=== PATIENT | female | born 1965 | race Caucasian/White ===

== ENCOUNTER 2019-07-12 13:50 | Emergency (ER) | payer SELFPAY ==
[2019-07-12 14:18] VITALS: BP 169/97; PULSE 92; RESP 18; TEMP 36.6; O2SAT 91; BMI 33.5
--- NOTE | 2019-07-12 14:56 | PC.NURSE ---
Pt sitting in waiting room. No needs at this time.
--- NOTE | 2019-07-12 14:58 | XR_ITS ---
WS: [id number] Portable AP upright chest, 07/12/2019 Clinical Data: cough Comparison: PA and lateral chest, 08/11/2016 Findings: No nodules, masses or effusions are seen. The heart is normal. The pulmonary vascularity is not increased. No pneumonia or pneumothorax is present. XR/XR chest 1V portable [id number] Impression: Negative chest.
--- NOTE | 2019-07-12 15:34 | ED_ITS ---
Entered by Sylwia Oliver, acting as scribe for Trupti Hawkins DO Jul 12, 2019 13:50 HPI - SOB/Dyspnea General: Chief Complaint: Shortness of Breath/Dyspnea Stated Complaint: sob, congestion Time Seen by Provider: 07/12/19 15:32 Source: patient Mode of arrival: ambulatory Limitations: no limitations History of Present Illness: HPI Narrative: 53 yo Female presents to ED with complaint of shortness of breath. Pt states that she has had cough and chest congestion since Monday. Pt states that she is not on oxygen at home. MD elicited complaint: shortness of breath and cough Onset (ago): day(s) Timing: constant Exacerbating factors: coughing Relieving factors: oxygen Associated symptoms: Reports chest congestion and cough; Deny abdominal pain, chest pain, extremity pain, fever(s), hemoptysis, nausea, orthopnea, polydipsia, polyuria or vomiting Treatment prior to arrival: none Related Data: Home oxygen amount: none Review of Systems Const: Denies: fever, chills, change in appetite or malaise Eyes: Denies: change in vision, blurry vision, eye discharge or eye redness ENMT: Denies: throat pain, uvular edema, painful swallowing, mouth pain, dental pain, nasal congestion or facial/sinus pain Card: Denies: chest pain, irregular heart rhythm, swelling of feet/ankles, shortness of breath on exertion, shortness of breath when lying down or leg pain with exertion Resp: Reports: chest congestion; Denies: shortness of breath, productive cough, wheezing or coughing up blood GI: Denies: abdominal pain, nausea, vomiting, diarrhea, constipation or fecal incontinence : Denies: flank pain, difficulty urinating, painful urination, urinary frequency, urinary urgency or urinary hesitancy Musc: Denies: neck pain, back pain, extremity pain or extremity swelling Skin/Breast: Denies: rash, itching, redness, yellow skin or dry skin Neuro: Denies: headache, numbness in extremities, weakness in extremities, changes in sensation, lack of coordination or difficulty walking Psych: Denies: anxiety, depression, mood swings, panic attacks, sleeping less, suicidal ideation or homicidal ideation Endo: Denies: excessive urination, excessive thirst or tired all the time Ben/Lymph: Denies: easy bruising, petechiae or enlarged lymph nodes All/Imm: Denies: hives, throat swelling, facial swelling, acute wheezing or seasonal allergies PFSH ED PFSH: Statuses (acute, chronic, etc) shown below reflect problem list status as previously entered and may not be historically accurate Social History Smoking and tobacco status: current every day smoker Physical Exam 2 Const: COMMON NORMALS: no apparent distress, oriented x3, no limitations, healthy appearing, alert and well nourished GENERAL APPEARANCE: cooperative, comfortable, well kempt and well developed ORIENTATION/CONSCIOUSNESS: Yes awake, Yes oriented to person, Yes oriented to place and Yes oriented to time HENMT: COMMON NORMALS: normocephalic, head/scalp atraumatic, hearing grossly normal bilaterally, external ears normal, EAC's normal, TM's normal bilaterally, external nose normal, nasal mucous membranes and turbinates normal, moist oral mucous membranes, oropharynx normal, dentition normal and gingiva normal HEAD & SCALP: normal to inspection, normocephalic and atraumatic FACE & SINUS: normal facial exam NOSE: external nose normal and nasal mucous membranes and turbinates normal EXTERNAL EAR: Yes external ears normal EXTERNAL AUDITORY CANAL: EAC's normal TYMPANIC MEMBRANE: TM's normal bilaterally MOUTH: oral and palatal mucosa normal, lip normal and tongue normal THROAT: no uvular edema Eye: COMMON NORMALS: PERRL, EOMs intact bilaterally, conjunctivae normal, no scleral icterus and normal visual dunn by confrontation GENERAL EYE: normal appearance of both eyes and normal light reflex VISUAL ACUITY: Yes acuity normal ALIGNMENT: Yes alignment normal PERIORBITAL: periorbital findings normal EYELID: eyelids normal CONJUNCTIVA: Yes conjunctivae normal SCLERA: sclerae normal PUPIL: Yes PERRL and Yes accommodation reflex normal DIRECT OPHTHALMOSCOPY: Yes normal light reflex Neck/C-Spine: COMMON NORMALS: full ROM, no lymphadenopathy, supple, no meningeal signs and no JVD GENERAL: Yes normal visual inspection CAROTIDS: Yes normal carotid upstroke CERVICAL SPINE: Yes cervical ROM normal Lymph: LYMPHATIC: no lymphadenopathy noted Chest: COMMONS NORMALS: inspection of chest normal CHEST: Yes symmetrical chest wall rise Resp: COMMON NORMALS: normal respiratory effort, no retractions, no use of accessory muscles and clear to auscultation bilaterally EFFORT & INSPECTION: Yes able to speak in complete sentences and Yes symmetric chest movement AUSCULTATION: clear to auscultation bilaterally Cardio: COMMON NORMALS: no JVD, regular rate, regular rhythm, S1 normal heart sound, S2 normal heart sound, no murmurs and peripheral pulses 2+ throughout RATE: regular rate RHYTHM: regular rhythm HEART SOUNDS: S1 normal and S2 normal PERIPHERAL PULSES: pulses 2+ throughout GI: COMMON NORMALS: normal to inspection, nondistended, normoactive bowel sounds and non-tender : COMMON NORMALS: Yes no CVA tenderness BLADDER/KIDNEY EXAM: Yes no CVA tenderness Back/Pelvis: COMMON NORMALS: no CVA tenderness, thoracic and lumbar spine normal to inspection, no thoracic nor lumbar tenderness and thoraco-lumbar ROM normal Extremity: COMMON NORMALS: normal to inspection, full ROM, normal capillary refill, no calf tenderness and no pedal edema Neuro: COMMON NORMALS: oriented x3, CN's II-XII intact bilaterally, moves all extremities, no focal motor deficits, no sensory deficits noted and gait normal SENSORIUM/ORIENTATION: Yes alert, Yes oriented to person, Yes oriented to place and Yes oriented to time MENINGEAL SIGNS: Yes no meningeal signs SPEECH: speech normal GAIT: Yes normal gait MOTOR EXAM: strength 5/5 throughout, no pronator drift and no tremor noted Psych: COMMON NORMALS: mental status grossly normal, thought process normal, cooperative, affect normal, speech normal and activity/motor behavior normal APPEARANCE: Yes well kempt SPEECH: Yes normal speech THOUGHT PROCESS: normal thought process THOUGHT CONTENT: Yes normal thought content INSIGHT: insight good Skin: COMMON NORMALS: no rashes or lesions noted, no wounds, skin turgor normal and no jaundice GENERAL SKIN EXAM: no rashes or lesions noted and turgor normal Course ED course: pt improved after treamtne. Agrees with plan to treat as bronchitis, discussed smoking cessation. No claudication or indication for further testing at this time, pt will return for further evaluation as needed if symptoms worsen or change. Vital Signs: Vital signs: Vital Signs Temperature 97.8 F 07/12/19 14:18 Pulse Rate 92 07/12/19 14:18 Respiratory Rate 18 07/12/19 14:18 Blood Pressure 169/97 07/12/19 14:18 Pulse Oximetry 91 07/12/19 14:18 MDM - SOB/Dyspnea Differential Diagnosis: Shortness of Breath Differential Diagnosis: Likely acute exacerbation of chronic obstructive airways disease, community acquired pneumonia and asthma with exacerbation Imaging Data^: CXR: Radiologist's impression: [address] [address] XRay Report Signed Patient: Shireen Silverman #: [id number] : 1965Acct#:[id number] Age/Sex: 53 / FADM Date: 07/12/19 Loc: ERRoom/Bed: Attending Dr: Ordering Provider/Ordering MD: Trupti Hawkins DO Date of Service: 07/12/19 Procedure(s): XR chest 1V portable [id number] Accession Number(s): [id number] Report Number: [id number] WS: [id number] Portable AP upright chest, 07/12/2019 Clinical Data: cough Comparison: PA and lateral chest, 08/11/2016 Findings: No nodules, masses or effusions are seen. The heart is normal. The pulmonary vascularity is not increased. No pneumonia or pneumothorax is present. XR/XR chest 1V portable [id number] Impression: Negative chest. Dictated By:Selin Nixon MD Signed By:Selin Nixon MDSigned Date/Time:07/12/191530 DD/ 1530 Discharge Plan Discharge Patient Disposition: Home, Self-Care Clinical Impression: Acute exacerbation of chronic obstructive airways disease Condition: Stable Prescriptions: New Tessalon Perles 100 mg capsule 100 mg PO TID 7 Days Qty: 21 RF: 0 doxycycline monohydrate 100 mg capsule 100 mg PO BID 7 Days Qty: 14 RF: 0 prednisone 50 mg tablet 50 mg PO DAILY 7 Days RF: 0 Ventolin HFA 90 mcg/actuation HFA aerosol inhaler 2 inh INHALATION Q6H PRN (Reason: shortness of breath or wheezing) Qty: 8 RF: 0 Discharge Orders: Discharge Order (Routine); Ordered 07/12/19 Ordered By: Trupti Hawkins Referrals: Pati Villavicencio FNP [Primary Care Provider] - Discharge Diet: Usual diet Discharge Activity: Resume usual activity Patient Instructions: Acute Bronchitis (ED), Quitting Smoking Coding Level of Care Code ED Hand Quilter for Chg Fwd Exam Problem Focused The documentation recorded by the krystinibMelody young Carmen, accurately reflects the service I personally performed and the decisions made by me, Trupti Hawkins, Jul 12, 2019 13:50
[2019-07-12] MEDS: albuterol 8 gm MDI 1 PUFF INHALATION (15:56)
[2019-07-12 15:58] VITALS: PULSE 93; RESP 18; O2SAT 92
[2019-07-12 16:00] VITALS: PULSE 96
[2019-07-12 16:15] VITALS: BP 160/82; PULSE 93; RESP 22; O2SAT 92
== END 2019-07-12 16:12 | disposition home or self-care (01) ==
PROVIDERS: Emergency Provider Emergency Medicine; Family Provider Nurse Practitioner Family; PCP Nurse Practitioner Family
DX: J44.1 Chronic obstructive pulmonary disease with (acute) exacerbation (principal); F17.210 Nicotine dependence, cigarettes, uncomplicated
CPT/HCPCS: 71045; 94640; 96372; 99281; 99284; J2930; J3535

== ENCOUNTER 2019-12-12 16:51 | Outpatient (CLI) | payer OTHER, SELFPAY ==
[2019-12-12 17:40] LABS: Thyroid Stimulating Hormone 1.69 uIU/mL (0.27-4.20); Uric Acid 5.3 mg/dL (2.4-5.7)
[2019-12-12 19:24] LABS: Estmated Average Glucose 123; Hemoglobin A1C 5.9 % (4.0-6.0)
[2019-12-16 21:00] LABS: Smooth Muscle Ab Screen NEGATIVE (NEGATIVE)
== END 2019-12-12 16:52 | disposition home or self-care (01) ==
LOC: LAB 16:54
PROVIDERS: PCP Nurse Practitioner Family; Visit Provider Nurse Practitioner Family
DX: R73.9 Hyperglycemia, unspecified (principal); Z86.39 Personal history of other endocrine, nutritional and metabolic disease; M25.50 Pain in unspecified joint
CPT/HCPCS: 83036; 83516; 84443; 84550

== ENCOUNTER 2020-05-11 13:27 | Emergency (ER) | payer OTHER, SELFPAY ==
[2020-05-11 13:34] VITALS: BP 150/82; PULSE 81; RESP 18; TEMP 36.5; O2SAT 97; BMI 36.2
--- NOTE | 2020-05-11 14:15 | XR_ITS ---
WS: [id number] PORTABLE CHEST HISTORY: CP COMPARISON: 07/12/2019 Hyperexpanded lungs with mild edema. No pneumonia. No pleural effusion or pneumothorax. Cardiac size: Normal. Mediastinum/Aorta: Normal mediastinum. No osseous abnormality seen. XR/XR chest 1V portable [id number] IMPRESSION: Mild interstitial edema. No pneumonia.
--- NOTE | 2020-05-11 14:19 | W.ED.CHESTPA ---
HPI - Chest Pain General: Chief Complaint: Chest Pain Stated Complaint: CP Time Seen by Provider: 05/11/20 13:44 Source: patient Mode of arrival: ambulatory Limitations: no limitations History of Present Illness: MD complaint: chest pain Onset (ago): hour(s) (11) Timing of current episode: constant Prior episodes: Yes Onset: during rest Pain location: substernal Pain radiation: right arm and back Severity: severe Pain scale (0-10): 8 Quality: sharp Relieving factors: nothing Exacerbating factors: nothing Associated symptoms: Reports dyspnea, leg edema and nausea; Deny abdominal pain, diaphoresis, fever(s), palpitations, sense of impending doom, syncope or vomiting Treatment prior to arrival: aspirin Review of Systems General: Reports: 10 or more systems reviewed and unremarkable except in HPI and below Const: Denies: fever(s) or diaphoresis Eyes: Denies: change in vision or blurry vision ENMT: Denies: throat pain, enlarged tonsils, odynophagia, hoarseness, mouth pain or swelling of lips/tongue Card: Denies: palpitations or syncope Resp: Reports: dyspnea GI: Reports: nausea; Denies: abdominal pain or vomiting : Denies: flank pain, difficulty voiding, dysuria, urinary frequency, urinary urgency or urinary hesitancy Musc: Reports: extremity swelling; Denies: neck pain or back pain Skin/Breast: Denies: rash, pruritus or erythema Neuro: Denies: headache(s), numbness in extremities or weakness in extremities Endo: Denies: polyuria, polydipsia or tired all the time [facility] ED PFSH: Medical History (Reviewed 05/11/20 @ 14:21 by Bernadette Joyce [place], [facility] [place] Fluid retention in legs Heart murmur Menopause Surgical History (Reviewed 05/11/20 @ 14:21 by Bernadette Joyce MD, [facility] [place] H/O: hysterectomy Social History (Reviewed 05/11/20 @ 14:21 by Bernadette Joyce MD, [facility] [place] Smoking and tobacco status: current every day smoker Physical Exam Const: COMMON NORMALS: no acute distress, average body habitus, patient oriented x3, no limitations, healthy appearing, alert and well nourished HENMT: COMMON NORMALS: normocephalic, atraumatic and moist oral mucous membranes HEAD & SCALP: normocephalic and atraumatic Neck/C-Spine: COMMON NORMALS: no meningeal signs and no JVD Resp: COMMON NORMALS: normal respiratory effort, No retractions, No use of accessory muscles, clear to auscultation bilaterally and percussion normal AUSCULTATION: clear to auscultation bilaterally PERCUSSION: percussion normal Cardio: COMMON NORMALS: no JVD, regular rate, regular rhythm, S1 normal heart sound present, S2 normal heart sound present, No gallops present (Cardio), No clicks present (Cardio), No rub (Cardio) and Peripheral pulses 2+ throughout RATE: regular rate RHYTHM: regular rhythm HEART SOUNDS: S1 normal heart sound present, S2 normal heart sound present and Murmur heart sound present PERIPHERAL PULSES: Peripheral pulses 2+ throughout GI: COMMON NORMALS: Normal to inspection, nondistended, normoactive bowel sounds present, Soft to palpation, non-tender, No hepatosplenomegaly present, no masses and no bruits PALPATION: Yes Soft to palpation and Yes No hepatosplenomegaly present Extremity: COMMON NORMALS: normal to inspection, full ROM, capillary refill normal and no calf tenderness GENERAL: Yes edema (2+) Neuro: COMMON NORMALS: patient oriented x3 SENSORIUM/ORIENTATION: Yes alert MENINGEAL SIGNS: Yes no meningeal signs Skin: COMMON NORMALS: no rashes or lesions noted, no wounds, turgor normal, no jaundice, no petechiae and no mottling GENERAL SKIN EXAM: no rashes or lesions noted and turgor normal Course Reevaluation(s): Reevaluation #1: Discussed her lab and imaging findings with her. Negative high-sensitivity troponin x2. D-dimer elevated but a CTA was negative for PE. Nothing acute on her evaluation today and I will discharge her home with no new orders. She voiced understanding and is in agreement with the plan. Time: 18:15 Vital Signs: Vital signs: Vital Signs Temperature 97.7 F 05/11/20 13:34 Pulse Rate 81 05/11/20 18:41 Respiratory Rate 18 05/11/20 18:41 Blood Pressure 141/78 05/11/20 18:41 Pulse Oximetry 95 05/11/20 18:41 MDM - Chest Pain MDM Narrative: Medical decision making narrative: Patient with chest pain that is not likely to be cardiac. She had a negative high-sensitivity troponin x2. D-dimer was elevated but a chest CTA was negative for PE or other acute findings. She is discharged home with no new orders. Differential Diagnosis: Cardiac arrest differential diagnosis: Likely acute massive pulmonary embolism, acute respiratory failure and acute myocardial infarction Medical Records: Attestation: I reviewed the patient's medical records. Lab Data: Attestation: I reviewed the patient's lab results. Labs: Lab Results 05/11/20 05/11/20 05/11/20 Range/Units 14:30 14:30 14:30 WBC Cancelled Corrected WBC Cancelled RBC Cancelled Hgb Cancelled Hct Cancelled MCV Cancelled MCH Cancelled MCHC Cancelled RDW Cancelled Plt Count Cancelled MPV Cancelled Gran % Cancelled Neut % (Auto) Cancelled Lymph % (Auto) Cancelled Beadle % (Auto) Cancelled Eos % (Auto) Cancelled Baso % (Auto) Cancelled Neut # (Auto) Cancelled Lymph # (Auto) Cancelled Beadle # (Auto) Cancelled Eos # (Auto) Cancelled Baso # (Auto) Cancelled Absolute Gran (aut o) Cancelled Nucleated RBC % (a uto) Cancelled Nucleated RBCs # Cancelled D-Dimer (0-0.59) ug/mIFE U Sodium Cancelled Potassium Cancelled Chloride Cancelled Carbon Dioxide Cancelled Anion Gap Cancelled BUN Cancelled Creatinine Cancelled GFR Calculation Cancelled Glucose Cancelled Calculated Osmolal ity Cancelled Calcium Cancelled Total Bilirubin Cancelled AST Cancelled ALT Cancelled Alkaline Phosphata se Cancelled Troponin T Baselin e Cancelled Troponin T 120 Min [place] (0-10) ng/L Delta Troponin T (0-10) ABS# NT-Pro-B Natriuret Pep Cancelled Total Protein Cancelled Albumin Cancelled Globulin Cancelled Lipase Cancelled 05/11/20 05/11/20 05/11/20 Range/Units 15:01 15:01 15:01 WBC 6.8 Corrected WBC RBC 4.33 Hgb 13.5 Hct 40.1 MCV 92.6 MCH 31.2 MCHC 33.7 RDW 14.5 Plt Count 159 MPV 9.5 Gran % Neut % (Auto) 41.6 Lymph % (Auto) 41.1 Beadle % (Auto) 14.0 Eos % (Auto) 2.5 Baso % (Auto) 0.7 Neut # (Auto) 2.83 Lymph # (Auto) 2.8 Beadle # (Auto) 1.0 H Eos # (Auto) 0.2 Baso # (Auto) 0.1 Absolute Gran (aut o) Nucleated RBC % (a uto) 0 Nucleated RBCs # 0.0 D-Dimer 1.47 H (0-0.59) ug/mIFE U Sodium 141 Potassium 3.8 Chloride 108 H Carbon Dioxide 24 Anion Gap 12.8 BUN 10 Creatinine 0.5 GFR Calculation 129.6 Glucose 91 Calculated Osmolal ity 291 Calcium 8.7 Total Bilirubin 1.1 AST 61 H ALT 31 Alkaline Phosphata se 173 H Troponin T Baselin e Troponin T 120 Min [place] (0-10) ng/L Delta Troponin T (0-10) ABS# NT-Pro-B Natriuret Pep 95 Total Protein 6.8 Albumin 3.6 Globulin 3.2 Lipase 30 05/11/20 05/11/20 Range/Units 15:01 17:04 WBC Corrected WBC RBC Hgb Hct MCV MCH MCHC RDW Plt Count MPV Gran % Neut % (Auto) Lymph % (Auto) Beadle % (Auto) Eos % (Auto) Baso % (Auto) Neut # (Auto) Lymph # (Auto) Beadle # (Auto) Eos # (Auto) Baso # (Auto) Absolute Gran (aut o) Nucleated RBC % (a uto) Nucleated RBCs # D-Dimer (0-0.59) ug/mIFE U Sodium Potassium Chloride Carbon Dioxide Anion Gap BUN Creatinine GFR Calculation Glucose Calculated Osmolal ity Calcium Total Bilirubin AST ALT Alkaline Phosphata se Troponin T Baselin e 6 Troponin T 120 Min [place] 6.00 (0-10) ng/L Delta Troponin T 0 (0-10) ABS# NT-Pro-B Natriuret Pep Total Protein Albumin Globulin Lipase Imaging Data^: CXR: Attestation: I personally reviewed and interpreted this imaging study as follows: Radiologist's impression: [address] [address] XRay Report Signed Patient: Shireen Silverman AUnyunier #: [id number] : 1965Acct#:[id number] Age/Sex: 54 / FADM Date: 05/11/20 Loc: ERRoom/Bed: Attending Dr: Ordering Provider/Ordering MD: Bernadette Joyce MD, JONI Date of Service: 05/11/20 Procedure(s): XR chest 1V portable [id number] Accession Number(s): [id number] Report Number: [id number] WS: [id number] PORTABLE CHEST HISTORY: CP COMPARISON: 07/12/2019 Hyperexpanded lungs with mild edema. No pneumonia. No pleural effusion or pneumothorax. Cardiac size: Normal. Mediastinum/Aorta: Normal mediastinum. No osseous abnormality seen. XR/XR chest 1V portable [id number] IMPRESSION: Mild interstitial edema. No pneumonia. Dictated By:Kerry Payne DO Signed By:Kerry Payne DOSigned Date/Time:05/11/201438 DD/ 38 CTA Chest: Radiologist's impression: [place] [address] CT Scan Report Signed Patient: Shireen Silverman #: [id number] : 1965Acct#:[id number] Age/Sex: 54 / FADM Date: 05/11/20 Loc: ERRoom/Bed: Attending Dr: Ordering Provider/Ordering MD: Bernadette Joyce MD, [facility] [place] of Service: 05/11/20 Procedure(s): CT angio chest PE protcl [id number] Accession Number(s): [id number] Report Number: [id number] PROCEDURE INFORMATION: Exam: CT Angiography Chest With Contrast Exam date and time: 05/11/2020 5:21 PM Age: 54 years old Clinical indication: Shortness of breath; Chest pain; Additional info: Chest pain, SOB, TECHNIQUE: Imaging protocol: Computed tomographic angiography of the chest with intravenous contrast. 3D rendering (Not supervised by radiologist): MIP and/or 3D reconstructed images were created by the technologist. Radiation optimization: All CT scans at this facility use at least one of these dose optimization techniques: automated exposure control; mA and/or kV adjustment per patient size (includes targeted exams where dose is matched to clinical indication); or iterative reconstruction. Contrast material: OMNI 350; Contrast volume: 73 ml; Contrast route: INTRAVENOUS (IV); COMPARISON: CR XR chest 1V portable [id number] 05/11/2020 2:19 PM RADIATION DOSE METRICS: Total DLP (mGy-cm): 613.91 FINDINGS: Pulmonary arteries: There is no evidence of filling defects within the pulmonary arterial circulation to suggest pulmonary embolism. Aorta: Unremarkable. No aortic aneurysm. No aortic dissection. Lungs: There is some minimal scarring in the periphery of the right middle lobe. Pleural space: There are no pleural effusions present. Heart: Unremarkable. No cardiomegaly. No pericardial effusion. 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 Lymph nodes: There is calcified granuloma in the right lower lobe and there are calcified right hilar lymph nodes in keeping with old granulomatous disease. There is mild subcarinal adenopathy. Spleen: The spleen demonstrates punctate calcifications, consistent with remote granulomatous organism exposure. Bones/joints: Unremarkable. No acute fracture. Soft tissues: Unremarkable. CT/CT angio chest PE protcl [id number] IMPRESSION: 1. No evidence of pulmonary embolism. 2. Old granulomatous disease. Radiation Dose CTDIVOL = (mGy): DLP = 613.91 (mGy-cm) Dictated By:Luke Fisher Signed By:Manasa Fisherigned Date/Time:05/11/201756 DD/ 55 EKG Data^: EKG 1: Attestation: I personally reviewed and interpreted this EKG as follows: EKG interpretation date: 05/11/20 EKG interpretation time: 13:33 Prior EKG tracings: not available for review Interpretation: Normal sinus rhythm. Heart rate [address] changes. Q waves in 2 3 aVF and V4 V5 and V6. EKG 2: Attestation: I personally reviewed and interpreted this EKG as follows: EKG interpretation date: 05/11/20 EKG interpretation time: 16:37 Prior EKG tracings: available for review Interpretation: Normal sinus rhythm. Heart rate 83 bpm. Q waves in 2 3 and aVF and V4 V5 and V6. Unchanged from earlier today Discharge Plan Discharge Patient Disposition: Home Clinical Impression: Chest pain, non-cardiac Condition: Stable Prescriptions: Continued aspirin 81 mg Tablet,Delayed Release (Dr/Ec) 81 mg PO ONCE RF: 0 Vitamin B-12 50 mcg Tablet 50 mcg PO DAILY@04 RF: 0 Acidophilus Capsule 1 cap PO DAILY@04 RF: 0 Claritin 10 mg Tablet 10 mg PO DAILY@04 RF: 0 Premarin 0.625 mg tablet 0.625 mg PO DAILY@04 RF: 0 Lasix 20 mg tablet 20 mg PO DAILY@04 RF: 0 Discharge Orders: Discharge ED (Routine); Ordered 05/11/20 Ordered By: Bernadette Joyce Referrals: Pati Villavicencio FNP [Primary Care Provider] - 1-3 days Discharge Diet: Usual diet Discharge Activity: Resume usual activity Patient Instructions: Noncardiac Chest Pain (ED) Activity Restrictions/Additional Instructions: Return for any new or worsening symptoms. Follow-up with your primary care provider within 3 days. Continue home medications. Coding Level of Care Code ED Commissioned Security Officer for Loi Fwd Exam Comprehensive
[2020-05-11 15:16] LABS: Basophils # 0.1 10^3/uL (0.0-0.1); Basophils % 0.7 %; Eosinophils # 0.2 10^3/uL (0.0-0.8); Eosinophils % 2.5 %; Hematocrit 40.1 % (37.0-47.0); Hemoglobin 13.5 g/dL (11.5-15.3); Lymphocytes # 2.8 10^3/uL (0.8-4.8); Lymphocytes % 41.1 %; Mean Corpuscular HGB Conc 33.7 g/dL (30.0-36.0); Mean Corpuscular Hemoglobin 31.2 pg (28.0-34.0); Mean Corpuscular Volume 92.6 fL (81-99); Mean Platelet Volume 9.5 fL (7.4-10.4); Neutrophils # 2.83 10^3/uL (1.8-7.7); Neutrophils % 41.6 %; Nucleated Red Blood Cells % 0 %; Platelet Count 159 10^3/cmm (130-400); Red Blood Count 4.33 10^6/uL (4.1-5.3); Red Cell Distribution Width 14.5 % (12.1-15.1); White Blood Count 6.8 10^3/uL (4.0-10.0)
[2020-05-11 15:32] LABS: D Dimer 1.47 ug/mIFEU (0-0.59)
[2020-05-11] MEDS: aspirin 81 mg Chew Tablet 162 MG PO (15:35)
[2020-05-11] MEDS: nitroglycerin 1 gm/inch oint Pkt 1 INCH TOPICAL (15:35)
[2020-05-11 15:38] VITALS: BP 158/78; PULSE 76; RESP 18; O2SAT 96
[2020-05-11 15:52] LABS: Troponin(5th) Baseline 6 ng/L (0-10)
[2020-05-11 15:58] LABS: Alanine Aminotransferase 31 U/L (0-33); Albumin Level 3.6 g/dL (3.5-5.2); Alkaline Phosphatase 173 IU/L (35-105); Anion Gap 12.8 (5-19); Aspartate Amino Transferase 61 U/L (0-32); Blood Urea Nitrogen 10 mg/dL (6-20); Calcium 8.7 mg/dL (8.5-10.5); Carbon Dioxide 24 mmol/L (22-29); Chloride 108 mmol/L (98-107); Globulin 3.2 g/dL (1.3-4.6); Glomerular Filtration Rate 129.6 mL/min (90-130); Glucose 91 mg/dL (65-115); Lipase 30 U/L (13-60); NT Pro B Type Natriuretic Pept 95 pg/mL (0-125); Osmolality Calculated 291 mOsm/kg (285-295); Potassium 3.8 mmol/L (3.5-5.1); Sodium 141 mmol/L (136-145); Total Bilirubin 1.1 mg/dL (0.15-1.2); Total Protein 6.8 g/dL (6.6-8.7)
--- NOTE | 2020-05-11 16:17 | ECG_ITS ---
[facility] Test Date: 2020-05-11 Pat Name: Shireen Silverman Department: Room: Gender: Female Sales Process Manager: : 1965 Requested By: Bernadette Joyce I Order Number: [id number] Reading MD: BIJAN VERONICA Measurements Intervals [place] Rate: 83 P: 57 IN: 163 QRS: 70 QRSD: 88 T: 29 QT: 386 QTc: 455 Interpretive Statements SINUS RHYTHM NONSPECIFIC T-WAVE ABNORMALITY Compared to ECG 08/11/2016 17:56:05 No significant changes Electronically Signed On 05-11-2020 18:40:16 LABEL REMOVER by BIJAN VERONICA [id number]
--- NOTE | 2020-05-11 16:22 | CTR_ITS ---
PROCEDURE INFORMATION: Exam: CT Angiography Chest With Contrast Exam date and time: 05/11/2020 5:21 PM Age: 54 years old Clinical indication: Shortness of breath; Chest pain; Additional info: Chest pain, SOB, TECHNIQUE: Imaging protocol: Computed tomographic angiography of the chest with intravenous contrast. 3D rendering (Not supervised by radiologist): MIP and/or 3D reconstructed images were created by the technologist. Radiation optimization: All CT scans at this facility use at least one of these dose optimization techniques: automated exposure control; mA and/or kV adjustment per patient size (includes targeted exams where dose is matched to clinical indication); or iterative reconstruction. Contrast material: OMNI 350; Contrast volume: 73 ml; Contrast route: INTRAVENOUS (IV); COMPARISON: CR XR chest 1V portable [id number] 05/11/2020 2:19 PM RADIATION DOSE METRICS: Total DLP (mGy-cm): 613.91 FINDINGS: Pulmonary arteries: There is no evidence of filling defects within the pulmonary arterial circulation to suggest pulmonary embolism. Aorta: Unremarkable. No aortic aneurysm. No aortic dissection. Lungs: There is some minimal scarring in the periphery of the right middle lobe. Pleural space: There are no pleural effusions present. Heart: Unremarkable. No cardiomegaly. No pericardial effusion. 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 Lymph nodes: There is calcified granuloma in the right lower lobe and there are calcified right hilar lymph nodes in keeping with old granulomatous disease. There is mild subcarinal adenopathy. Spleen: The spleen demonstrates punctate calcifications, consistent with remote granulomatous organism exposure. Bones/joints: Unremarkable. No acute fracture. Soft tissues: Unremarkable. CT/CT angio chest PE protcl [id number] IMPRESSION: 1. No evidence of pulmonary embolism. 2. Old granulomatous disease. Radiation Dose CTDIVOL = (mGy): DLP = 613.91 (mGy-cm)
[2020-05-11 17:33] LABS: Troponin 5 2HR Delta 0 ABS# (0-10)
[2020-05-11] MEDS: iohexol 350 mg/mL 100 mL Btl IV (17:34)
[2020-05-11 17:47] VITALS: BP 134/58; PULSE 90; RESP 18; O2SAT 95
[2020-05-11 18:41] VITALS: BP 141/78; PULSE 81; RESP 18; O2SAT 95
== END 2020-05-11 18:42 | disposition home or self-care (01) ==
PROVIDERS: Emergency Provider Family Medicine; PCP Nurse Practitioner Family
DX: R07.89 Other chest pain (principal); Z79.82 Long term (current) use of aspirin; F17.210 Nicotine dependence, cigarettes, uncomplicated
CPT/HCPCS: 12345; 71045; 71275; 80053; 83690; 83880; 84484; 85025; 85378; 93005; 99283; 99284; Q9967

== ENCOUNTER 2020-05-13 14:53 | Outpatient (CLI) | payer OTHER, SELFPAY ==
--- NOTE | 2020-05-13 15:00 | USCV_ITS ---
Shireen Silverman Age: 54 Gender: F : 1965 Exam Date: 05/13/2020 15:24 Ordering Phys: Pati Villavicencio Technologist: Jessica Gan Exam Location: [facility] [place] Indication: MURMUR BP: 120 / 70 HR: 87 Rhythm: Sinus Technical Quality: Adequate MEASUREMENTS (Male / Female) Normal Values 2D ECHO LV Diastolic Diameter PLAX 3.8 cm 4.2 - 5.9 / 3.9 - 5.3 cm LV Systolic Diameter PLAX 2.6 cm LV Chamber Size 3.7 cm IVS Diastolic Thickness 0.9 cm 0.6 - 1.0 / 0.6 - 0.9 cm IVS Systolic Thickness 1.4 cm LVPW Diastolic Thickness 1.5 cm 0.6 - 1.0 / 0.6 - 0.9 cm LVPW Systolic Thickness 1.4 cm RV Chamber Size 2.9 cm LVOT Diameter 2.0 cm LV Ejection Fraction 2D Teich 58.1 % LV Ejection Fraction MOD 2C 64.0 % LV Ejection Fraction 2C AL 64.5 % LA Diameter 3.1 cm LA Width 2.9 cm LA Height 4.3 cm RA Width 2.6 cm RA Height 4.3 cm Aorta at Sinotubular Diameter 2.8 cm M-MODE LV Diastolic Diameter MM 4.7 cm 4.2 - 5.9 / 3.9 - 5.3 cm LV Systolic Diameter MM 2.3 cm LV Ejection Fraction MM Teich 83.0 % IVS Diastolic Thickness MM 1.1 cm 0.6 - 1.0 / 0.6 - 0.9 cm IVS Systolic Thickness MM 1.4 cm LVPW Diastolic Thickness MM 1.0 cm 0.6 - 1.0 / 0.6 - 0.9 cm LVPW Systolic Thickness MM 1.6 cm RV Diastolic Diameter MM 1.0 cm Aortic Annulus Diameter 3.0 cm LA Ao Ratio MM 1.2 MV E Point Septal Separation 0.4 cm DOPPLER AV Peak Velocity 197.0 cm/s LVOT Peak Velocity 105.0 cm/s AV Area Cont Eq vti 1.8 cm squared AV Area Cont Eq pk 1.7 cm squared MV Area PHT 4.4 cm squared Mitral E to A Ratio 1.0 MV E' Velocity 61.5 cm/s Mitral E to MV E' Ratio 10.4 Mitral E to LV E' Lateral Ratio 14.4 Mitral E to LV E' Septal Ratio 8.2 TR Peak Velocity 262.0 cm/s TR Peak Gradient 27.5 mmHg TR Mean Velocity 198.3 cm/s TR Mean Gradient 17.6 mmHg TR Velocity Time Integral 65.6 cm TV Peak E Velocity 88.0 cm/s Right Atrial Pressure 3.0 mmHg Pulmonary Artery Systolic Pressu 30.5 mmHg PV Peak Velocity 95.0 cm/s RV Acceleration Time 0.1 s RV Ejection Time 0.4 s RV AcT/ET 0.3 FINDINGS Left Ventricle Normal left ventricular size, systolic function and wall thickness, with no regional wall motion abnormalities. Left ventricular ejection fraction is estimated at 70 %. Normal diastolic function. Right Ventricle Normal right ventricular size and systolic function. Right ventricular systolic pressure 30.5 mmHg. Right Atrium Normal right atrial size. Left Atrium Normal left atrial size. Mitral Valve Structurally normal mitral valve. No mitral valve stenosis. No significant mitral valve regurgitation. Aortic Valve Aortic valve not well visualized. No aortic valve stenosis. No aortic valve regurgitation. Tricuspid Valve Structurally normal tricuspid valve. No tricuspid valve stenosis. Mild tricuspid valve regurgitation. Pulmonic Valve Pulmonic valve not well visualized. Pericardium No pericardial effusion. Aorta Normal-sized aortic root. Normal-sized inferior vena cava. CONCLUSIONS 1. Normal left ventricular size, systolic function and wall thickness, with no regional wall motion abnormalities. Left ventricular ejection fraction is estimated at 70 %. Normal diastolic function. 2. Normal right ventricular size and systolic function. 3. Normal pulmonary artery pressure. 4. Mild tricuspid valve regurgitation. 5. No prior similar studies to compare. Amna Charles MD (Electronically Signed) Final Date: 15 May 2020 13:50 S
== END 2020-05-13 14:54 | disposition home or self-care (01) ==
LOC: US 14:54
PROVIDERS: PCP Nurse Practitioner Family; Visit Provider Nurse Practitioner Family
DX: R01.1 Cardiac murmur, unspecified (principal); I07.1 Rheumatic tricuspid insufficiency
CPT/HCPCS: 93306

== ENCOUNTER 2020-06-10 12:17 | Outpatient (CLI) | payer OTHER, SELFPAY ==
[2020-06-10 12:53] LABS: Basophils # 0.1 10^3/uL (0.0-0.1); Basophils % 0.7 %; Eosinophils # 0.2 10^3/uL (0.0-0.8); Eosinophils % 2.8 %; Hematocrit 41.6 % (37.0-47.0); Hemoglobin 13.9 g/dL (11.5-15.3); Lymphocytes # 2.3 10^3/uL (0.8-4.8); Lymphocytes % 34.8 %; Mean Corpuscular HGB Conc 33.4 g/dL (30.0-36.0); Mean Corpuscular Hemoglobin 31.2 pg (28.0-34.0); Mean Corpuscular Volume 93.3 fL (81-99); Mean Platelet Volume 9.4 fL (7.4-10.4); Monocytes # 0.8 10^3/uL (0.2-0.9); Monocytes % 12.5 %; Neutrophils # 3.29 10^3/uL (1.8-7.7); Neutrophils % 49.1 %; Nucleated Red Blood Cells % 0 %; Platelet Count 147 10^3/cmm (130-400); Red Blood Count 4.46 10^6/uL (4.1-5.3); White Blood Count 6.7 10^3/uL (4.0-10.0)
[2020-06-11 17:38] LABS: Cat Dander (E1) Ige 0.67 kU/L; Cat Dander Class 1; Common Ragweed (Short) (W1) Ig <0.10 kU/L; Dog Dander (E5) Ige 0.18 kU/L; Dog Dander Class 0/1; Elm (T8) Ige <0.10 kU/L; Elm Class 0; English Plantain (W9) Ige <0.10 kU/L; English Plantain Class 0; Immunoglobulin E 88 kU/L (<OR=114); Immunoglobulin E 89 kU/L (<OR=114); Lamb'S Quarters (Goose Foot) <0.10 kU/L; Lamb'S Quarters Class 0; Maple (Box Elder) (T1) Ige <0.10 kU/L; Maple Class 0; Oak (T7) Ige <0.10 kU/L; Oak Class 0; Ragweeed Class 0; Rough Marsh Elder (W16) Ige <0.10 kU/L; Rough Marsh Elder Class 0
[2020-06-12 18:33] LABS: Aspergillus Fumigatus, Igg Ab, 71.9 mg/L (<=102)
[2020-06-15 17:42] LABS: Alternaria Alternata (M6) Ige <0.10 kU/L; Alternaria Class 0; Bermuda Class 0; Bermuda Grass (G2) Ige <0.10 kU/L; D. Farinae Class 0/1; Dermatophagoides Class 0/1; Dermatophagoides Farinae (D2) 0.21 kU/L; Dermatophagoides Pteronyssinus 0.25 kU/L; House Dust (Greer) (H1) Ige 0.29 kU/L; House Dust (Hollister- Stier) 0.34 kU/L; House Dust Class 0/1; Johnson Grass (G10) Ige 0.11 kU/L; Johnson Grass Cl 0/1; June Grass Class 0/1; June Grass(Kentucky Blue) (G8) 0.14 kU/L; Meadow Fescue (G4) Ige 0.18 kU/L; Meadow Fescue Class 0/1; Mucor Racemosus Class 0; Orchard Grass (Cocksfoot) (G3) 0.17 kU/L; Penicillium Class 0; Penicillium Notatum (M1) Ige <0.10 kU/L; Perennial Rye Grass (G5) Ige 0.12 kU/L; Perennial Rye Grass Class 0/1; Sweet Vernal Class 0/1; Sweet Vernal Grass (G1) Ige 0.24 kU/L; Timothy Grass (G6) Ige 0.16 kU/L; Timothy Grass Class 0/1
== END 2020-06-10 12:18 | disposition home or self-care (01) ==
LOC: LAB 12:19
PROVIDERS: PCP Nurse Practitioner Family; Visit Provider Internal Medicine Pulmonary Disease
DX: R60.0 Localized edema (principal)
CPT/HCPCS: 36415; 82785; 85025; 86003

== ENCOUNTER → 2020-06-13 14:43 | Outpatient (BNVA) | payer OTHER, SELFPAY | PROVIDERS: PCP Nurse Practitioner Family; Visit Provider Internal Medicine Pulmonary Disease | DX: R06.02 Shortness of breath (principal) | CPT/HCPCS: 87635 ==

== ENCOUNTER 2020-06-17 13:11 | Outpatient (CLI) | payer OTHER, SELFPAY ==
--- NOTE | 2020-06-17 14:13 | PFTS_ITS ---
Date of Study:06/17/20 Date of Dictation: MECHANICS: Forced vital capacity (FVC) is reduced. Forced expiratory volume in one second (FEV1) is reduced. FEV1/FVC is normal. FLOW VOLUME LOOP: Narrowed with mild scooping. LUNG VOLUMES: Total lung capacity (TLC) is normal. Residual volume (RV) is increased. DIFFUSING CAPACITY FOR CARBON MONOXIDE: Mild reduced. INTERPRETATION: The pulmonary function test is consistent with nonspecific ventilatory limitation. The prebronchodilator spirometry is consistent with moderate restriction. However, the total lung capacity is normal and the patient has evidence of air trapping. Gas exchange (DLCO) is mildly reduced. MTDD
== END 2020-06-17 13:12 | disposition home or self-care (01) ==
PROVIDERS: PCP Nurse Practitioner Family; Visit Provider Internal Medicine Pulmonary Disease
DX: R06.02 Shortness of breath (principal)
CPT/HCPCS: 94010; 94726; 94729

== ENCOUNTER → 2020-07-06 09:36 | Outpatient (BNVA) | payer OTHER, SELFPAY | PROVIDERS: PCP Nurse Practitioner Family; Visit Provider Internal Medicine Cardiovascular Disease | DX: I50.9 Heart failure, unspecified (principal); R60.0 Localized edema | CPT/HCPCS: 80048; 83735; 83880 ==

== ENCOUNTER 2020-07-16 08:27 | Outpatient (CLI) | payer OTHER, SELFPAY ==
[2020-07-16 08:55] VITALS: BMI 37.6
--- NOTE | 2020-07-16 09:00 | ECG_ITS ---
[facility] Test Date: 2020-07-16 Pat Name: Shireen Silverman Department: Room: Gender: Female [employer] Se[employer]cy [employer] Officer: : 1965 Requested By: Amna Charles Order Number: [id number] Varma MD: Amna Charles M.D. Interpretive Statements NAME OF STUDY: LEXISCAN SESTAMIBI STRESS TEST INDICATION: CHEST PAIN; SHORTNESS OF BREATH PROCEDURE: At the baseline, the blood pressure was 134/68 mm Hg with a heart rate of 87 bpm and oxygen saturation of 98%. The electrocardiogram showed normal sinus rhythm, normal axis and non specific ST- T wave abnormality. ??? The Lexiscan was infused over a period of 20 seconds. A total of 0.4 milligrams of Lexiscan was infused. The stress phase was continued for a total of 5 minutes. Heart rate at the end of the stress phase was 86 bpm with a blood pressure of 129/68 mm Hg and oxygen saturation of 98%. The EKG at the peak infusion revealed no significant ST-T wave abnormality. The study was terminated due to protocol completion. ??? Sestamibi was injected 20 seconds after the Lexiscan infusion. ??? Blood pressure at the end of the recovery phase was 132/73 mm Hg with a heart rate of 86 beats per minute and oxygen saturation of 97%. ??? CONCLUSION: 1. No significant EKG changes with the LexiScan infusion. 2. No LexiScan induced chest pain or cardiac arrhythmia. 3. Normal blood pressure and heart rate response. 4. Sestamibi/sestamibi perfusion scan pending; see separate report. RESULTS TO LAURY ZARCO Electronically Signed On 07-21-2020 8:15:59 DIRECTOR CLINICAL INFORMATION SERVICES by Amna Charles M.D. [email or web address]
--- NOTE | 2020-07-16 09:01 | NMCV_ITS ---
NM ariel perf SPECT r/s* [id number] Shireen Silverman Age: 54 Gender: F : 1965 Exam Date: 07/16/2020 09:47 Ordering Phys: Amna Charles MD ([email or web address]) Technologist: PRAMOD Marrufo Exam Location: [facility] Indications: CHEST PAIN STRESS TEST Please see separate stress test report in [facility] for full findings IMAGE PROTOCOL Rest/Stress 1 Lexiscan Day Radiopharmaceutical Dose (mCi) Administration Site Administered by Rest: Tc-99m 10.7 IV PRAMOD Hunter Sestamibi Stress:Tc-99m 32.6 IV PRAMOD Marrufo Sestamideondre Rest: 16-Jul-2020 60 Discovery 630 Stress: 16-Jul-2020 30 Discovery 630 0.4mg Lexiscan. Images obtained in supine and prone position. SPECT RESULTS Technical Quality: Excellent Raw Data Analysis: Breast attenuation Image Corrections: No attenuation or motion correction applied Summed Stress Score: 6 Summed Rest Score: 8 Summed Difference Score: 2 PERFUSION FINDINGS Medium sized perfusion abnormality of moderate severity of entire anterior, apical septal, apical lateral and apical jacob on rest images with slightly improved tracer uptake on stress images. FUNCTIONAL RESULTS (calculated via Gated SPECT) Stress Image LV EF (%): 75 Stress EDV (mL):100 TID: 0.93 Stress ESV (mL):25 FUNCTIONAL FINDINGS: The left ventricle is normal in size. Transient Ischemia Dilatation of 0.93. There is normal left ventricular systolic function. The left ventricular ejection fraction is normal with a value of 75%. There is normal left ventricular wall thickening. No regional wall motion abnormality. Normal end-diastolic and end-systolic volumes. IMPRESSIONS 1. Medium sized perfusion abnormality of moderate severity of entire anterior, apical septal, apical lateral and apical jacob with slightly improved tracer uptake on stress images. 2. This very represent attenuation artifact. However, old myocardial infarction in left anterior descending artery territory cannot be completely ruled out. 3. Overall left ventricular systolic function is normal without regional wall motion abnormalities. 4. The left ventricular ejection fraction is normal with a value of 75%. 5. No coronary ischemia based on the study. Amna Charles MD (Electronically Signed) Final Date: 21 July 2020 11:54 S
--- NOTE | 2020-07-16 10:21 | SUR.PREOP ---
Patient reports no pain or discomfort prior to the start of the procedure.
[2020-07-16] MEDS: regadenoson 0.4 Mg/5 ml Syringe IVP (10:22)
[2020-07-16 11:09] VITALS: BP 132/83; PULSE 83
== END 2020-07-16 08:28 | disposition home or self-care (01) ==
LOC: CDL 08:30
PROVIDERS: PCP Nurse Practitioner Family; Visit Provider Internal Medicine Cardiovascular Disease
DX: R07.9 Chest pain, unspecified (principal); R06.02 Shortness of breath
CPT/HCPCS: 78452; 93017; A9500; J2785

== ENCOUNTER 2020-07-30 14:20 | Outpatient (CLI) | payer OTHER, SELFPAY ==
--- NOTE | 2020-07-30 14:30 | MM_ITS ---
WS: [id number] BILATERAL DIGITAL SCREENING MAMMOGRAPHY WITH CAD CLINICAL INFORMATION: screening mammogram HISTORY: Screening mammogram. No current complaints. COMPARISON: TECHNIQUE: Bilateral CC and MLO views. FINDINGS: The breasts are composed of heterogeneous fibroglandular density tissue, which can limit the detectio n of small underlying mass lesions. No suspicious mass, asymmetry, calcifications, or architectural d istortion. No evidence of malignancy. Punctate and lucent centered calcifications. MM/[place] [id number] IMPRESSION: BI-RADS: 2-Benign FOLLOW UP: 1 Year Follow-up Recommend return to annual screening mammography.
== END 2020-07-30 14:21 | disposition home or self-care (01) ==
LOC: RADSHAW 14:21
PROVIDERS: PCP Nurse Practitioner Family; Visit Provider Nurse Practitioner Family
DX: Z12.31 Encounter for screening mammogram for malignant neoplasm of breast (principal)
CPT/HCPCS: 77067